=== PATIENT | male | born 1980 | race Caucasian/White ===

== ENCOUNTER 2021-10-20 03:12 | Emergency (ER) | payer OTHER ==
[2021-10-20 03:35] VITALS: BP 108/61; PULSE 68; RESP 16; TEMP 97.8; BMI 28.0
== END 2021-10-20 06:53 | disposition home or self-care (01) ==
LOC: FER 03:12
DX: F10.920 Alcohol use, unspecified with intoxication, uncomplicated (principal)
CPT/HCPCS: 99283-25